=== PATIENT | female | born 1985 | race Caucasian/White ===

== ENCOUNTER 2020-09-23 08:52 | Outpatient (CLI) | payer OTHER, SELFPAY ==
[2020-09-23 10:04] LABS: Thyroid Stimulating Hormone 2.94 uIU/mL (0.36-3.74)
== END 2020-09-23 08:53 | disposition home or self-care (01) ==
PROVIDERS: PCP Family Medicine
DX: E03.9 Hypothyroidism, unspecified (principal)
CPT/HCPCS: 36415; 84439; 84443

== ENCOUNTER 2021-01-16 13:32 | Outpatient (CLI) | payer OTHER, SELFPAY ==
[2021-01-18 11:52] LABS: TB Skin Test Erythema 0 mm; TB Skin Test Induration 0 mm (0-10); TB Skin Test Interpretation Negative (Negative); TB Skin Test Site Left Arm
== END 2021-01-16 13:33 | disposition home or self-care (01) ==
LOC: CHSLAB 13:36
PROVIDERS: PCP Family Medicine; Visit Provider Family Medicine
DX: Z11.1 Encounter for screening for respiratory tuberculosis (principal)
CPT/HCPCS: 36415; 86580

== ENCOUNTER 2021-07-03 11:04 | Outpatient (CLI) | payer OTHER, SELFPAY ==
--- NOTE | ~2021-07-03 | US_ITS ---
EXAMINATION: US thyroid EXAM DATE: 07/03/2021 11:40 INDICATION: Hypothyroidism . TECHNIQUE: Multiple grayscale and Doppler images of the thyroid were obtained (by a technologist who performed the scan) and subsequently reviewed. Individual nodules and recommendations may be reporte d in accordance with TI-RADS system as designated by the 2017 ACR White Paper TI-RADS committee. The re is no prior study for comparison. FINDINGS: The right thyroid lobe measures 5.8 x 1.8 x 1.9 cm, the left measuring 5.5 x 2.1 x 2.0 cm. These dime nsions are moderately enlarged. There is diffusely heterogeneous thyroid echogenicity and mild hyperv ascularity. No discrete focal nodule is identified. IMPRESSION: Goiter. Reviewed, dictated and finalized at location A. IMPRESSION: Goiter.
== END 2021-07-03 11:05 | disposition home or self-care (01) ==
LOC: CHSIMG 11:05
PROVIDERS: PCP Emergency Medicine; Visit Provider Emergency Medicine
DX: E03.9 Hypothyroidism, unspecified (principal)
CPT/HCPCS: 76536

== ENCOUNTER 2022-01-10 15:28 | Outpatient (CLI) | payer OTHER, SELFPAY ==
[2022-01-10 16:34] LABS: Free T4 Free Thyroxine 1.03 ng/dL (0.76-1.46); Thyroid Stimulating Hormone 1.34 uIU/mL (0.36-3.74)
[2022-01-12 08:45] LABS: TB Skin Test Erythema 0 mm; TB Skin Test Induration 0 mm (0-10); TB Skin Test Interpretation Negative (Negative)
[2022-01-12 08:46] LABS: TB Skin Test Site Left Arm
== END 2022-01-10 15:29 | disposition home or self-care (01) ==
LOC: CHSLAB 15:30
PROVIDERS: PCP Family Medicine; Visit Provider Family Medicine
DX: E03.9 Hypothyroidism, unspecified (principal); Z11.1 Encounter for screening for respiratory tuberculosis
CPT/HCPCS: 36415; 84439; 84443; 86580